=== PATIENT | male | born 1940 | race Caucasian/White ===

== ENCOUNTER → 2018-12-25 | Outpatient (REF) ==
[~2018-12-25] MED LIST: ASPIRIN325 MG PO; BACTRIM DS1 TAB PO; CEPHALEXIN500 MG PO; CLORTIMAZOLE EX; ERYTHROMYCIN O3.5 GM OD; KEFLEX500 M1 PO; NORCO1 TA1 PO; ZESTRIL10 MG PO; ZESTRIL20 MG OR
== END | disposition home or self-care (01) | DRG 639 ==
LOC: LAB 08:09
PROVIDERS: ATTEND Internal Medicine Geriatric Medicine
DX: E11.9 Type 2 diabetes mellitus without complications (principal); I10 Essential (primary) hypertension; Z12.5 Encounter for screening for malignant neoplasm of prostate; Z12.12 Encounter for screening for malignant neoplasm of rectum